=== PATIENT | male | born 1975 | race American Indian/Alaskan Native ===

== ENCOUNTER 2016-11-18 21:47 | Emergency (ER) | payer OTHER ==
--- NOTE | 2016-11-18 23:09 | XRay Report ---
FINAL REPORT EXAM: XR ANKLE 3+V LT HISTORY: Left ankle pain, swelling COMPARISONS: None. FINDINGS: Three nonweightbearing portable views left ankle Intact ankle mortise. Soft tissue swelling about the ankle. No fracture small calcaneal heel spur noted. IMPRESSION: Soft tissue swelling about the left ankle without fracture.
[2016-11-18 23:33] LABS: Basophils % (Auto) 0.3 % (0.0-1.8); Eosinophils % (Auto) 0.7 % (0.0-4.3); Hematocrit 41.6 % (35.5-45.6); Hemoglobin 14.3 gm/dl (11.8-15.2); Mean Corpuscular HGB Conc 35 % (32-34); Mean Corpuscular Hemoglobin 31 pg (28-32); Mean Corpuscular Volume 90 fl (84-94); Platelet Count 282 K/mm3 (140-440); Red Blood Count 4.62 M/mm3 (3.65-5.03); Red Cell Distribution Width 13.8 % (13.2-15.2); White Blood Count 7.3 K/mm3 (4.5-11.0)
[2016-11-18 23:48] LABS: Creatine Kinase MB 3.8 ng/mL (0.0-4.0)
[2016-11-18 23:49] LABS: Anion Gap 17 mmol/L; BUN/Creatinine Ratio 12.72; Blood Urea Nitrogen 14 mg/dL (9-20); Calcium 9.3 mg/dL (8.4-10.2); Carbon Dioxide 25 mmol/L (22-30); Chloride 100.9 mmol/L (98-107); Creatine Kinase 514 units/L (55-170); Glucose 102 mg/dL (75-100); Potassium 4.2 mmol/L (3.6-5.0); Sodium 139 mmol/L (137-145)
[2016-11-19 00:22] LABS: Bilirubin,Urine NEG (Negative); Blood,Urine MOD (Negative); Ketones,Urine NEG (Negative); Leukocyte Esterase,Urine MOD (Negative); Mucus,Urine FEW /HPF; Nitrite,Urine NEG (Negative); Protein,Urine <15 mg/dL mg/dL (Negative); Urobilinogen,Urine < 2.0 mg/dL (<2.0)
[2016-11-19 00:34] VITALS: BP 139/94
[2016-11-19] MEDS ORDERED: ROCEPHIN IM ONE (00:36)
[2016-11-19] MEDS ORDERED: ZITHROMAX PO ONE (00:36)
[2016-11-19] MEDS ORDERED: XYLOCAINE 1% MPF 5 mL INFILTRATI ONE (00:36)
[2016-11-19] MEDS ORDERED: MACROBID PO ONE (00:36)
--- NOTE | 2016-11-19 00:40 | Emergency Department Report ---
HPI - General Chief Complaint: High BP Time Seen by Provider: 11/19/16 00:20 - HPI HPI: 41-year-old male presents to the emergency department with a few different complaints. First the patient has been having a 3-4 day history of burning with urination as well as some white discharge from the penis. He also thinks that the tip of the penis is red and slightly irritated. However he says that he is not very sexually active. He has not taken anything for his symptoms prior to presentation. No previous history of STDs. Secondarily, the patient complains of some intermittent pains to the left lower leg from the ankle up through the del[place] that has been going on for the past 1-2 months. He denies any skin color change there or any swelling. 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 However a friend or coworker gave him a few doses of lisinopril and he was able to get his blood pressure down enough to get the job but he does not have a prescription for any blood pressure medication. He denies any chest pain, shortness of breath, headache, vision change. ED Past Medical Hx - Past Medical History Previous Medical History?: Yes Hx Hypertension: Yes (No prescribed Rx) Additional medical history: Obesity - Surgical History Past Surgical History?: No - Social History Smoking Status: Never Smoker Substance Use Type: None - Medications Home Medications: Home Medications Medication Instructions Recorded Confirmed Last Taken Type Nitrofurantoin Williams/M-Cryst 100 mg PO BID #14 capsule 11/19/16 Unknown Rx [Macrobid CAP] ED Review of Systems ROS: Stated complaint: PAIN URINATING,HIGH BP,LEG PAIN Other details as noted in HPI Comment: All other systems reviewed and negative Constitutional: denies: chills, fever Eyes: denies: eye pain, eye discharge, vision change ENT: denies: ear pain, throat pain Respiratory: denies: cough, shortness of breath, wheezing Cardiovascular: denies: chest pain, palpitations Gastrointestinal: denies: abdominal pain, nausea, diarrhea Genitourinary: dysuria, discharge Musculoskeletal: denies: back pain, joint swelling, arthralgia Skin: change in color. denies: rash Neurological: denies: headache, weakness, paresthesias Physical Exam - Physical Exam Vital Signs: Vital Signs 11/18/16 11/19/16 22:10 00:34 Temperature 99.2 F Pulse Rate 99 H 74 Respiratory 20 16 Rate Blood Pressure 153/96 139/94 [Right] O2 Sat by Pulse 97 95 Oximetry Physical Exam: GENERAL: The patient is well-developed well-nourished. HEENT: Normocephalic. Atraumatic. Extraocular motions are intact. Patient has moist mucous membranes. Pupils equal reactive to light bilaterally. NECK: Supple. Trachea is midline. CHEST/LUNGS: Clear to auscultation. There is no respiratory distress noted. HEART/CARDIOVASCULAR: Regular. There is no tachycardia. There is no gallop rub or murmur. ABDOMEN: Abdomen is soft, nontender. Patient has normal bowel sounds. There is no abdominal distention. Obese habitus. SKIN: Skin is warm and dry. There are no genital lesions seen but there is some redness seen just at the tip of the glans. : No tenderness to palpation of the penis or scrotum. There is a small amount of redness seen at the tip of the glans at the urethra. NEURO: The patient is awake, alert, and oriented. The patient is cooperative. The patient has no focal neurologic deficits. The patient has normal speech. MUSCULOSKELETAL: There is no tenderness or deformity. There is no limitation range of motion. There is no evidence of acute injury. ED Course Vital Signs 11/18/16 11/19/16 22:10 00:34 Temperature 99.2 F Pulse Rate 99 H 74 Respiratory 20 16 Rate Blood Pressure 153/96 139/94 [Right] O2 Sat by Pulse 97 95 Oximetry ED Medical Decision Making - Lab Data Result diagrams: 11/18/16 23:00 11/18/16 23:00 - Radiology Data Radiology results: image reviewed interpreted by me: X-ray of the left ankle does not show any fracture, dislocation or any acute process. - Medical Decision Making 41-year-old male presents with dysuria and penile discharge. He appears to have a urinary tract infection. Started on Macrobid. Given Rocephin and azithromycin to cover for gonorrhea and/or Chlamydia. Patient is been having some intermittent pain to the left lower extremity and ankle. X-ray does not show any fracture, dislocation or any acute process. He is been set up for an outpatient left lower extremity venous Doppler for tomorrow to rule out a DVT even though he is low suspicion. The patient has some hypertensive issues and recently failed and then passed a department of transportation physical due to his hypertension. While he did present with elevated blood pressure through triage, the blood pressure came down to a much more normal level without any intervention. Therefore I do not want to cause hypotension and will not start him on any new blood pressure medications at this time. We discussed dietary and lifestyle changes to make. He will return to the ER with any worsening of his symptoms or any acute distress. - Differential Diagnosis arthritis, DVT, urethritis, STD Critical Care Time: No Critical care attestation.: If time is entered above; I have spent that time in minutes in the direct care of this critically ill patient, excluding procedure time. ED Disposition Clinical Impression: Urethritis UTI (urinary tract infection) Qualifiers: Urinary tract infection type: urethritis Qualified Code(s): N34.2 - Other urethritis Hypertension Qualifiers: Hypertension type: essential hypertension Qualified Code(s): I10 - Essential ( primary) hypertension Disposition: DC- TO HOME OR SELFCARE Is pt being admited?: No Condition: Stable Instructions: Nonspecific Urethritis in Men (ED), Urinary Tract Infection in Men (ED), Hypertension (ED) Additional Instructions: Please follow-up with a primary care physician in the next few days. Take the antibiotics as prescribed. Try to stay away from foods that are high in salt and caffeinated products to help with your blood pressure. Keep a blood pressure log. Return to the emergency department with any worsening of your symptoms or any acute distress. Prescriptions: Nitrofurantoin Williams/M-Cryst [Macrobid CAP] 100 mg PO BID #14 capsule Referrals: PRIMARY CAREMD [Primary Care Provider] - 3-5 Days [facility] [Outside] - 3-5 Days [facility] [Outside] - 3-5 Days [facility] [Outside] - 3-5 Days Forms: STI Treatment and Prevention Time of Disposition: 00:40
== END 2016-11-19 01:24 | disposition home or self-care (01) ==
LOC: ED 21:47
DX: N34.2 Other urethritis (principal); I10 Essential (primary) hypertension; M25.572 Pain in left ankle and joints of left foot; E66.9 Obesity, unspecified
CPT/HCPCS: 36415; 73610; 80048; 81001; 82550; 82553; 83880; 85025; 86140; 96372; 99284; J0696

== ENCOUNTER 2017-06-07 23:05 | Emergency (ER) | payer SELFPAY ==
[2017-06-07 23:19] VITALS: BP 143/95
--- NOTE | 2017-06-07 23:42 | XRay Report ---
FINAL REPORT EXAM: XR WRIST 3+V RT HISTORY: R wrist swollen and painful TECHNIQUE: Right wrist 3 views PRIORS: None. FINDINGS: Carpal bones maintain normal alignment. No acute fracture is identified. The distal radius and ulna are intact. IMPRESSION: Negative wrist series
--- NOTE | 2017-06-07 23:57 | Emergency Department Report ---
ED Upper Extremity Inj HPI - General Chief Complaint: Extremity Problem,Nontraumatic Stated Complaint: RT WRIST PAIN Time Seen by Provider: 06/07/17 23:37 Source: patient Mode of arrival: Ambulatory Limitations: No Limitations - History of Present Illness Initial Comments: This is a 42-year-old male nontoxic, well nourished in appearance, no acute signs of distress presents to the ED with c/o of right wrist pain x2 days. Patient stated he was lifting heavy boxes and developed pain later that day. Patient denies any allergies Patient denies any trauma to the region. Patient also stated that wrist is swollen. Patient denies any joint redness, fever, chills, nausea, vomiting, headache or stiff neck. Patient denies any allergies or significant past medical history. MD Complaint: Injury to:: right, wrist -: days(s) (2) Other Extremity Injury: Wrist: Right Other Injuries: none Place: home Severity scale (0 -10): 8 Improves With: immobilization Worsens With: movement of extremity Associated Symptoms: denies other symptoms. denies: weakness, numbness, neck pain, suspects foreign body, nausea/vomiting, heard/felt popping sensat - Related Data Previous Rx's Medication Instructions Recorded Last Taken Type Nitrofurantoin St[place]/M-Cryst 100 mg PO BID #14 capsule 11/19/16 Unknown Rx [Macrobid CAP] Ibuprofen [Motrin] 600 mg PO Q8H PRN #30 tablet 06/07/17 Unknown Rx predniSONE [Deltasone] 40 mg PO QDAY #5 tab 06/07/17 Unknown Rx Allergies Allergy/AdvReac Type Severity Reaction Status Date / Time No Known Allergies Allergy Verified 11/18/16 22:28 ED Review of Systems ROS: Stated complaint: RT WRIST PAIN Other details as noted in HPI Constitutional: denies: chills, fever Eyes: denies: eye pain, eye discharge, vision change ENT: denies: ear pain, throat pain Respiratory: denies: cough, shortness of breath, wheezing Cardiovascular: denies: chest pain, palpitations Endocrine: no symptoms reported Gastrointestinal: denies: abdominal pain, nausea, diarrhea Genitourinary: denies: urgency, dysuria Musculoskeletal: denies: back pain, joint swelling, arthralgia Skin: denies: rash, lesions Neurological: denies: headache, weakness, paresthesias Psychiatric: denies: anxiety, depression Hematological/Lymphatic: denies: easy bleeding, easy bruising ED Past Medical Hx - Past Medical History Previous Medical History?: Yes Hx Hypertension: Yes (No prescribed Rx) Additional medical history: Obesity - Surgical History Past Surgical History?: Yes - Social History Smoking Status: Never Smoker Substance Use Type: Alcohol - Medications Home Medications: Home Medications Medication Instructions Recorded Confirmed Last Taken Type Nitrofurantoin [place]/M-Cryst 100 mg PO BID #14 capsule 11/19/16 Unknown Rx [Macrobid CAP] Ibuprofen [Motrin] 600 mg PO Q8H PRN #30 tablet 06/07/17 Unknown Rx predniSONE [Deltasone] 40 mg PO QDAY #5 tab 06/07/17 Unknown Rx ED Physical Exam - General Limitations: No Limitations General appearance: alert, in no apparent distress - Head Head exam: Present: atraumatic, normocephalic - Eye Eye exam: Present: normal appearance - ENT ENT exam: Present: mucous membranes moist - Neck Neck exam: Present: normal inspection - Respiratory Respiratory exam: Present: normal lung sounds bilaterally. Absent: respiratory distress - Cardiovascular Cardiovascular Exam: Present: regular rate, normal rhythm. Absent: systolic murmur, diastolic murmur, rubs, gallop - GI/Abdominal GI/Abdominal exam: Present: soft, normal bowel sounds - Rectal Rectal exam: Present: deferred - Extremities Exam Extremities exam: Present: normal inspection, full ROM, tenderness, normal capillary refill. Absent: pedal edema, joint swelling, calf tenderness - Expanded Upper Extremity Exam Right General: Present: normal inspection Shoulder Exam: Present: normal inspection, full ROM Upper Arm exam: Present: normal inspection, full ROM Elbow exam: Present: normal inspection, full ROM Forearm Wrist exam: Present: normal inspection, full ROM Hand Wrist exam: Present: normal inspection, full ROM, tenderness, swelling. Absent: abrasion, laceration, ecchymosis, deformity, crepidus, dislocation, erythema, amputation, nail avulsion, subungual hematoma Neuro motor exam: Present: wrist extension intact, thumb opposition intact, thumb IP flexion intact, thumb adduction intact, fingers 2-5 abduction intact Neurosensory exam: Present: 2-point discrimination, radial nerve intact, ulnar nerve intact, median nerve intact Vascular: Present: vascular compromise, normal capillary refill, radial pulse, brachial pulse, ulnar pulse - Back Exam Back exam: Present: normal inspection - Neurological Exam Neurological exam: Present: alert, oriented X3 - Psychiatric Psychiatric exam: Present: normal affect, normal mood - Skin Skin exam: Present: warm, dry, intact, normal color. Absent: rash - Other Other exam information: Area of right wrist is not warm to touch. no signs of cellulitis or tenosynovitis. ED Course Vital Signs 06/07/17 23:11 Temperature 98.4 F Pulse Rate 92 H Respiratory 18 Rate Blood Pressure 143/95 O2 Sat by Pulse 95 Oximetry - Reevaluation(s) Reevaluation #1: 06/07/17 23:57 Patient is speaking in full sentences with no signs of distress noted. ED Medical Decision Making - Lab Data Result diagrams: 06/08/17 00:28 06/08/17 00:28 - Medical Decision Making This is a 42-year-old male that presents with gout versus left wrist strain. Patient is stable and was examined by me. X-ray has been obtained and dictated by radiologist within normal limits. Labs within normal limits. There is no signs of cellulitis, joint rednes, joint swelling. Normal ROM with slight discomfort. Dr. Singh was consulted and agrees to the plan of care in the ED and follow-up with orthopedic discharge instructions. Patient notified of the extremities xray reults with known by the patient. Patient received ice the extremity. Patient also received Solu-Medrol and Motrin in the ED that his symptoms of pain is improving subsided. Patient is discharged with prednisone and Motrin. Patient received a Velcro wrist splint. He was instructed to Follow-up with a orthopedic doctor in 3-5 days or if symptoms worsen and continue return to emergency room as soon as possible. At time of discharge, the patient does not seem toxic or ill in appearance. No acute signs of distress noted. Patient agrees to discharge treatment plan of care. No further questions noted by the patient. Critical care attestation.: If time is entered above; I have spent that time in minutes in the direct care of this critically ill patient, excluding procedure time. ED Disposition Clinical Impression: Wrist strain Qualifiers: Encounter type: initial encounter Laterality: right Qualified Code(s): S66.911A - Strain of unspecified muscle, fascia and tendon at wrist and hand level, right hand, initial encounter Gout Qualifiers: Gout site: wrist Gout etiology: unspecified cause Chronicity: acute Laterality : right Qualified Code(s): M10.9 - Gout, unspecified Disposition: DC-01 TO HOME OR SELFCARE Is pt being admited?: No Does the pt Need Aspirin: No Condition: Stable Instructions: Ibuprofen (By mouth), Prednisone (By mouth), Wrist Injury (ED), RICE Therapy (ED), Acute Gouty Arthritis (ED) Additional Instructions: Follow-up with a orthopedic doctor in 3-5 days or if symptoms worsen and continue return to emergency room as soon as possible. Prescriptions: Ibuprofen [Motrin] 600 mg PO Q8H PRN #30 tablet PRN Reason: Pain predniSONE [Deltasone] 40 mg PO QDAY #5 tab Referrals: PRIMARY CAREMD [Primary Care Provider] - 3-5 Days GAL DILLON MD [Staff Physician] - 3-5 Days [facility] [Outside] - 3-5 Days [facility] [Outside] - 3-5 Days Forms: Work/School Release Form(ED)
[2017-06-07] MEDS ORDERED: MOTRIN PO ONE (23:59)
[2017-06-08 00:58] LABS: Basophils % (Auto) 0.3 % (0.0-1.8); Eosinophils # (Auto) 0.1 K/mm3 (0.0-0.4); Eosinophils % (Auto) 0.7 % (0.0-4.3); Hematocrit 40.8 % (35.5-45.6); Hemoglobin 13.9 gm/dl (11.8-15.2); Lymphocytes % (Auto) 23.4 % (13.4-35.0); Mean Corpuscular HGB Conc 34 % (32-34); Mean Corpuscular Hemoglobin 30 pg (28-32); Mean Corpuscular Volume 89 fl (84-94); Monocytes # (Auto) 0.5 K/mm3 (0.0-0.8); Monocytes % (Auto) 5.4 % (0.0-7.3); Platelet Count 279 K/mm3 (140-440); Red Cell Distribution Width 13.4 % (13.2-15.2)
[2017-06-08 00:59] LABS: BUN/Creatinine Ratio 15; Blood Urea Nitrogen 16 mg/dL (9-20); Hemolysis Index 9
[2017-06-08 01:49] LABS: Erythrocyte Sedimentation Rate 43 mm/Hr (0-20)
[2017-06-08 02:18] LABS: C-Reactive Protein 0.6 mg/dL (0.00-1.30)
== END 2017-06-08 02:40 | disposition home or self-care (01) ==
LOC: ED 23:05
DX: S66.911A Strain of unspecified muscle, fascia and tendon at wrist and hand level, right hand, initial encounter (principal); M10.9 Gout, unspecified; I10 Essential (primary) hypertension; X58.XXXA Exposure to other specified factors, initial encounter; Y93.89 Activity, other specified; Y92.89 Other specified places as the place of occurrence of the external cause; Y99.8 Other external cause status
CPT/HCPCS: 29125; 36415; 73110; 80048; 82140; 84550; 85025; 85652; 86140; 87040; 96372; 99284; J2930